=== PATIENT | male | born 1935 | race Caucasian/White ===

== ENCOUNTER → 2017-04-16 | Outpatient (CLI) | payer OTHER ==
--- NOTE | ~2017-04-16 | 2DMMODE ---
[facility] [place] [address] 2 D/M-MODE ECHOCARDIOGRAM Name: SHER SOTO [id number] Admission: 04/16/17 Attend Phys: Giuseppe Walters, Discharge: Date of : 37 Date of Service: 04/16/17 1159 Report #: [id number] THIS REPORT FOR: //name// APPROVED REPORT Study performed: 04/16/2017 09:27:41 EXAM: Comprehensive 2D, Doppler, and color-flow Echocardiogram Patient Location: Out-Patient Status: routine BSA: 2.01 HR: 66 bpm BP: 149/91 mmHg Rhythm: NSR Other Information Study Quality: Adequate Indications Aortic stenosis. Hx: CAD, stent, HTN 2D Dimensions RVDd: 31.31 mm IVSd: 12.21 (7-11mm) LVOT Diam: 21.91 (18-24mm) LVDd: 41.95 mm PWd: 9.72 (7-11mm) Ascending Ao: 30.81 (22-36mm) Aortic Root: 35.12 mm Volumes Left Atrial Volume (Systole) Single Plane 4CH: 53.43 mL Single Plane 2CH: 65.61 mL LA ESV Index: 32.00 mL/m2 Aortic Valve AoV Peak Eric.: 2.04 m/s AO Peak Gr.: 16.68 mmHg LVOT Max P.28 mmHg AO Mean Gr.: 8.22 mmHg AO V2 Mean: 1.34 m/s LVOT Max V: 1.03 m/s AO V2 VTI: 44.37 cm BRITTANY Vmax: 1.91 cm2 AI Vmax: 3.67 m/s AI [place]: 2.33 m/s2 AI PHT: 456.[address] [facility] [place] [address] 2 D/M-MODE ECHOCARDIOGRAM Name: SHER SOTO Room #: REG [facility]#: [id number] Admission: 04/16/17 Attend Phys: Giuseppe Walters, Discharge: Date of : 37 Date of Service: 04/16/17 1159 Report #: [id number] Mitral Valve E/A Ratio: 0.8 MV Decel. Time: 213.74 ms MV E Max Eric.: 0.74 m/s MV A Eric.: 0.93 m/s MV PHT: 61.99 ms IVRT: 106.11 ms Pulmonary Valve PV Peak Eric.: 1.10 m/s PV Peak Gr.: 4.84 mmHg Pulmonary Vein P Vein S: 0.68 m/s P Vein A: 0.35 m/s P Vein D: 0.37 m/s P Vein A Dur.: 124.6 msec P Vein S/D Ratio: 1.84 Tricuspid Valve TR Peak Eric.: 2.05 m/s RAP Estimate: 5.00 mmHg TR Peak Gr.: 16.74 mmHg PA Pressure: 22.00 mmHg Left Ventricle The left ventricle is normal size. There is normal LV segmental wall motion. There is normal left ventricular wall thickness. Left ventricular systolic function is normal. LVEF is 55-60%. Mild diastolic dysfunction is present (impaired relaxation pattern). Right Ventricle The right ventricle is normal size. The right ventricular systolic function is normal. Atria Left atrium is at the upper limits of normal. The right atrium size is normal. Aortic Valve Aortic valve is calcified, trileaflet. Mild aortic regurgitation. There is very mild valvular aortic stenosis. Calculated aortic valve area is 1.9 cm2 with maximum pressure gradient of 17 mmHg and mean pressure gradient of 8 mmHg. Mitral Valve The mitral valve is normal in structure. Mild-moderate mitral regurgitation [address] [address] 2 D/M-MODE ECHOCARDIOGRAM Name: SHER SOTO Room #: REG CL [facility]#: [id number] Admission: 04/16/17 Attend Phys: Giuseppe Walters, Discharge: Date of : 37 Date of Service: 04/16/17 1159 Report #: [id number] Tricuspid Valve The tricuspid valve is normal in structure. Trace tricuspid regurgitation. Estimated PAP is 20-25mmHg. Pulmonic Valve The pulmonary valve is normal in structure. Trace pulmonic regurgitation. Great Vessels The aortic root is normal in size. The ascending aorta is normal in size. IVC is normal in size and collapses >50% with inspiration. Pericardium There is no pericardial effusion. <Conclusion> Left ventricular systolic function is normal. LVEF is 55-60%. Normal LV segmental wall motion. Mild diastolic dysfunction is present (impaired relaxation pattern). Aortic valve is calcified, trileaflet, mildly stenotic. Mild insufficiency Aortic valve area is 1.9 cm2 with maximum pressure gradient of 17 mmHg and mean pressure gradient of 8 mmHg. The mitral valve is normal in structure. Mild-moderate mitral regurgitation Trace tricuspid regurgitation. Estimated pulmonary artery pressure is 20-25mmHg. There is no pericardial effusion. <ELECTRONICALLY SIGNED> By: Giuseppe Walters MD, FACC 04/16/17 1159 1159 1159 Giuseppe Walters MD, FACC /INF
== END ==
LOC: CV 07:59
DX: I35.0 Nonrheumatic aortic (valve) stenosis (principal); I25.10 Atherosclerotic heart disease of native coronary artery without angina pectoris; I10 Essential (primary) hypertension; I08.0 Rheumatic disorders of both mitral and aortic valves; I71.4 Abdominal aortic aneurysm, without rupture; I65.29 Occlusion and stenosis of unspecified carotid artery; Z82.49 Family history of ischemic heart disease and other diseases of the circulatory system; Z95.5 Presence of coronary angioplasty implant and graft

== ENCOUNTER → 2018-12-14 | Outpatient (CLI) | payer OTHER ==
--- NOTE | 2018-12-14 10:56 | 2DMMODE ---
[facility] [place] [address] 2 D/M-MODE ECHOCARDIOGRAM Name: SHER SOTO [facility]: [facility] [id number] ������������� Admission: 12/14/18 ������������� Attend Phys: Giuseppe Walters, Discharge: ��� ������������� ��� Date of : 37 �������������������� �� Report #: [id number] �������� ��������������������������������������������[id number] THIS REPORT FOR: //name// APPROVED REPORT Study performed: 12/14/2018 09:59:37 EXAM: Comprehensive 2D, Doppler, and color-flow Echocardiogram Patient Location: Out-Patient Status: routine BSA: 1.97 HR: 62 bpm BP: 134/80 mmHg Rhythm: NSR Other Information Study Quality: Good Indications Hypertension. Hx: CAD, stent, . 2D Dimensions RVDd: 29.52 mm IVSd: 11.18 (7-11mm) LVOT Diam: 20.82 (18-24mm) LVDd: 42.14 mm PWd: 9.06 (7-11mm) Ascending Ao: 31.05 (22-36mm) LVDs: 24.13 (25-40mm) Aortic Root: 33.09 mm Volumes Left Atrial Volume (Systole) Single Plane 4CH: 52.27 mL Single Plane 2CH: 47.42 mL LA ESV Index: 28.00 mL/m2 Aortic Valve AoV Peak Eric.: 2.35 m/s AO Peak Gr.: 22.16 mmHg LVOT Max P.32 mmHg AO Mean Gr.: 11.96 mmHg AO V2 Mean: 1.65 m/s LVOT Max V: 1.15 m/s AO V2 VTI: 48.69 cm BRITTANY Vmax: 1.67 cm2 Mitral Valve E/A Ratio: 0.[address] [facility] [place] [address] [place] [address] 2 D/M-MODE ECHOCARDIOGRAM Name: SHER SOTO Room #: REG [facility]#: [id number] ������������� Admission: 12/14/18 ������������� Attend Phys: Giuseppe Walters, Discharge: ��� ������������� ��� Date of : 37 �������������������� �� Report #: [id number] �������� ��������������������������������������������[id number] MV Decel. Time: 240.50 ms MV E Max Eric.: 0.61 m/s MV A Eric.: 0.85 m/s MV PHT: 69.74 ms IVRT: 83.04 ms Pulmonary Valve PV Peak Eric.: 1.09 m/s PV Peak Gr.: 4.71 mmHg Pulmonary Vein P Vein S: 0.54 m/s P Vein A: 0.35 m/s P Vein D: 0.36 m/s P Vein A Dur.: 115.3 msec P Vein S/D Ratio: 1.50 Tricuspid Valve TR Peak Eric.: 2.02 m/s RAP Estimate: 5.00 mmHg TR Peak Gr.: 16.28 mmHg PA Pressure: 21.00 mmHg Left Ventricle The left ventricle is normal size. There is normal LV segmental wall motion. Mild basal septal hypertrophy is present. Left ventricular systolic function is normal. LVEF is 55-60%. Mild diastolic dysfunction is present (impaired relaxation pattern). Right Ventricle The right ventricle is normal size. The right ventricular systolic function is normal. Atria Left atrium is at the upper limits of normal. The right atrium size is normal. Aortic Valve Aortic valve is moderately thickened and calcified. Mild aortic regurgitation. There is mild valvular aortic stenosis. Calculated aortic valve area is 1.7 cm2 (Peak gradient of 22 mmHg and mean pressure gradient of 12 mmHg). Mitral Valve The mitral valve is normal in structure. Mild mitral regurgitation. Tricuspid Valve The tricuspid valve is normal in structure. Trace tricuspid regurgitation. Estimated PAP is 20-25mmHg. [address] [address] 2 D/M-MODE ECHOCARDIOGRAM Name: SHER SOTO Room #: REG CL G[facility]#: [id number] ������������� Admission: 12/14/18 ������������� Attend Phys: Giuseppe Walters, Discharge: ��� ������������� ��� Date of : 37 �������������������� �� Report #: [id number] �������� ��������������������������������������������[id number] Pulmonic Valve The pulmonary valve is normal in structure. Trace pulmonic regurgitation. Great Vessels The aortic root is normal in size. The ascending aorta is normal in size. IVC is normal in size and collapses >50% with inspiration. Pericardium There is no pericardial effusion. <Conclusion> Left ventricular systolic function is normal. There is normal LV segmental wall motion. LVEF is 55-60%. Mild diastolic dysfunction Aortic valve is moderately thickened and calcified. Mild insufficiency and stenosis. Calculated aortic valve area is 1.7 cm2 (Peak gradient of 22 mmHg and mean pressure gradient of 12 mmHg). The mitral valve is normal in structure. Mild mitral regurgitation. Trace tricuspid regurgitation. Estimated pulmonary artery pressure of 20-25mmHg. There is no pericardial effusion. ��������������������������������������������� <ELECTRONICALLY SIGNED> ���������������������������������������� By: Giuseppe Walters MD, [facility] ��������������������������������������������� 12/14/18 1055 1055 1055 Giuseppe Walters MD, FACC /INF
== END ==
LOC: CV 09:49
DX: I08.0 Rheumatic disorders of both mitral and aortic valves (principal); I10 Essential (primary) hypertension; I25.10 Atherosclerotic heart disease of native coronary artery without angina pectoris

== ENCOUNTER → 2019-05-25 | Outpatient (CLI) | payer OTHER | LOC: SJCVC 10:22 | DX: I25.10 Atherosclerotic heart disease of native coronary artery without angina pectoris (principal); R94.31 Abnormal electrocardiogram [ECG] [EKG]; I10 Essential (primary) hypertension; E78.5 Hyperlipidemia, unspecified; I65.23 Occlusion and stenosis of bilateral carotid arteries; G47.33 Obstructive sleep apnea (adult) (pediatric); Z87.891 Personal history of nicotine dependence; Z99.89 Dependence on other enabling machines and devices; Z86.73 Personal history of transient ischemic attack (TIA), and cerebral infarction without residual deficits; Z79.82 Long term (current) use of aspirin; Z79.899 Other long term (current) drug therapy; Z79.84 Long term (current) use of oral hypoglycemic drugs ==

== ENCOUNTER → 2019-11-30 | Outpatient (CLI) | payer OTHER | LOC: SJCVC 11:53 | PROVIDERS: ATTEND Internal Medicine | DX: I25.10 Atherosclerotic heart disease of native coronary artery without angina pectoris (principal); I10 Essential (primary) hypertension; I35.0 Nonrheumatic aortic (valve) stenosis; E78.5 Hyperlipidemia, unspecified; I65.23 Occlusion and stenosis of bilateral carotid arteries; G47.33 Obstructive sleep apnea (adult) (pediatric); Z99.89 Dependence on other enabling machines and devices; Z79.899 Other long term (current) drug therapy; Z87.891 Personal history of nicotine dependence ==

== ENCOUNTER → 2020-06-06 | Outpatient (CLI) | payer OTHER | LOC: SJCVCIMAG 08:55 | PROVIDERS: ATTEND Internal Medicine | DX: I08.3 Combined rheumatic disorders of mitral, aortic and tricuspid valves (principal); I11.9 Hypertensive heart disease without heart failure; R94.31 Abnormal electrocardiogram [ECG] [EKG]; I25.10 Atherosclerotic heart disease of native coronary artery without angina pectoris; I10 Essential (primary) hypertension; E78.5 Hyperlipidemia, unspecified; I65.23 Occlusion and stenosis of bilateral carotid arteries; G47.33 Obstructive sleep apnea (adult) (pediatric); M19.90 Unspecified osteoarthritis, unspecified site; E78.2 Mixed hyperlipidemia; Z99.89 Dependence on other enabling machines and devices; Z88.5 Allergy status to narcotic agent; Z88.8 Allergy status to other drugs, medicaments and biological substances; Z72.89 Other problems related to lifestyle; Z87.891 Personal history of nicotine dependence; Z79.82 Long term (current) use of aspirin; Z86.73 Personal history of transient ischemic attack (TIA), and cerebral infarction without residual deficits; Z79.899 Other long term (current) drug therapy; Z82.49 Family history of ischemic heart disease and other diseases of the circulatory system ==

== ENCOUNTER → 2020-12-12 | Outpatient (CLI) | payer OTHER | LOC: SJCVC 10:04 | PROVIDERS: ATTEND Internal Medicine | DX: I25.10 Atherosclerotic heart disease of native coronary artery without angina pectoris (principal); I10 Essential (primary) hypertension; E78.5 Hyperlipidemia, unspecified; I65.23 Occlusion and stenosis of bilateral carotid arteries; G47.33 Obstructive sleep apnea (adult) (pediatric); Z99.89 Dependence on other enabling machines and devices; E78.2 Mixed hyperlipidemia; Z86.73 Personal history of transient ischemic attack (TIA), and cerebral infarction without residual deficits; Z79.82 Long term (current) use of aspirin; Z79.899 Other long term (current) drug therapy; Z87.891 Personal history of nicotine dependence; Z72.89 Other problems related to lifestyle; Z88.1 Allergy status to other antibiotic agents; Z88.5 Allergy status to narcotic agent ==

== ENCOUNTER → 2020-12-26 | Outpatient (CLI) | payer OTHER | LOC: SJCVCIMAG 07:46 | PROVIDERS: ATTEND Internal Medicine | DX: I25.10 Atherosclerotic heart disease of native coronary artery without angina pectoris (principal); E78.5 Hyperlipidemia, unspecified; I10 Essential (primary) hypertension; Z87.891 Personal history of nicotine dependence; Z79.82 Long term (current) use of aspirin; Z79.899 Other long term (current) drug therapy; Z98.61 Coronary angioplasty status; Z88.5 Allergy status to narcotic agent ==

== ENCOUNTER 2021-03-01 17:29 | Emergency (ER) | payer OTHER ==
[~2021-03-01] VITALS: Ht 170.2 cm; Wt 99.8 kg
[2021-03-01 19:35] VITALS: BP 157/78
== END 2021-03-01 19:35 | disposition home or self-care (01) ==
LOC: ER 17:29
DX: S06.0X0A Concussion without loss of consciousness, initial encounter (principal); S00.01XA Abrasion of scalp, initial encounter; W01.198A Fall on same level from slipping, tripping and stumbling with subsequent striking against other object, initial encounter; Y93.01 Activity, walking, marching and hiking; Y92.89 Other specified places as the place of occurrence of the external cause; Y99.9 Unspecified external cause status